=== PATIENT | female | born 2000 | race Two or more races ===

== ENCOUNTER 2022-04-19 02:04 | Emergency (ER) | payer OTHER ==
[~2022-04-19] VITALS: Ht 157.5 cm; Wt 43.1 kg
[2022-04-19] MEDS ORDERED: PEPCID AC20 MG PO (05:51)
[2022-04-19] MEDS ORDERED: ONDANSETRON HCL4 MG PO (05:51)
== END 2022-04-19 05:59 | disposition home or self-care (01) ==
LOC: ER 02:04 → EMR PED 02:04 → ER 04:52
DX: K29.70 Gastritis, unspecified, without bleeding (principal); R11.2 Nausea with vomiting, unspecified